=== PATIENT | female | born 2005 | race African-American/Black ===

== ENCOUNTER 2024-04-04 09:08 | Emergency (ER) | payer OTHER, SELFPAY ==
--- NOTE | ~2024-04-04 | XR_ITS ---
EXAMINATION: XR hand LT min 3V DATE: 04/04/2024 10:08 INDICATION: Posttraumatic pain at the palmar aspect of the ulnar side of the left hand TECHNIQUE: Posteroanterior, oblique and lateral views of the left hand were obtained. COMPARISON: None. FINDINGS: Alignment is normal. No fracture. Joint spaces are normal. Soft tissues are unremarkable. IMPRESSION: 1. Negative left hand radiographs. Reviewed, dictated and finalized at location A.
--- NOTE | 2024-04-04 09:35 | ED.UPPEXIN ---
HPI - Extremity Injury (Upper) General Chief Complaint: Extremity Injury, Upper Stated Complaint: Left Hand Injury Time Seen by Provider: 04/04/24 09:35 Source: patient, RN notes reviewed and old records reviewed Mode of arrival: ambulatory Limitations: no limitations History of Present Illness HPI narrative: 18-year-old female to [facility] with complaint left palmar pain since Monday. Patient states that she works at [employer] and noticed a box about to fall over. Patient states that she wrist toward the box to try to catch it before it fell to the ground. 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 Patient reports treating with ice and ibuprofen at home without relief. patient denies prior injury, weakness, numbness, tingling. Patient endorses the pain increases with activity. Patient resting comfortably in exam room in no acute distress. Related Data Home Medications Medication Instructions Recorded Confirmed No Home Medications 04/04/24 04/04/24 Allergies Allergy/AdvReac Type Severity Reaction Status Date / Time No Known Allergies Allergy Verified 04/04/24 09:44 Review of Systems Review of Systems: All systems reviewed & are unremarkable except as noted in HPI and below Constitutional: Constitutional: Reports no additional constitutional complaints Eyes: Eyes: Reports no additional eye complaints ENT: Reports system reviewed and no additional complaints, except as documented Cardiovascular: Cardiovascular: Reports no additional cardiovascular complaints, Denies chest pain and Denies dyspnea Respiratory: Respiratory: Reports no additional respiratory complaints, Denies cough and Denies dyspnea Musculoskeletal: Musculoskeletal: Reports as per HPI and Reports other ( Left palmar hand pain) Neurologic: Reports system reviewed and no additional complaints, except as documented Psychiatric: Psychiatric: Reports no additional psychiatric complaints PMFSH Comments At the time of my signature, I reviewed and agree with the nursing past medical, surgical, social, and family history. There is no relevant family history pertinent to the patient complaint. Exam Const: General: cooperative, healthy appearing, comfortable, no acute distress, alert and well nourished Nutritional Appearance: well nourished Orientation/consciousness: patient oriented x3 Limitations: no limitations HENMT: Head: normal to inspection Ears: external ears normal Face/Nose/Sinus: Normal external nose present, Normal nares present, normal facial exam, No erythema and No edema Face and sinus: normal facial exam, no erythema and no edema Mouth: Yes Normal oral and palatal mucosa present Eyes: General: appearance normal, both eyes and all related structures Neck: Neck: normal visual inspection, full ROM and no meningeal signs Chest: Chest palpation & inspection: normal inspection of the chest Resp: Effort & Inspection: normal respiratory effort and able to speak in complete sentences Cardio: Jugular venous distension: no JVD Rate: regular rate Back/Spine/Pelvis: Cervical Spine: cervical ROM normal Skin: General skin exam: normal color, no rashes or lesions noted and turgor normal Neuro: General: patient oriented x3, gait normal, moves all extremities and no meningeal signs Speech: normal speech Gait exam (Neuro): Normal gait present Extrem: General: normal to inspection, full ROM and capillary refill normal Left upper extremity: hand normal capillary refill and tenderness of the palm Psych: Appearance: grossly normal and well kempt Course Course Emergency Course: Some parts of this dictation were generated by voice recognition software and may contain typographical and/or grammatical inaccuracies. Level of Care: Express Care Visit Vital Signs Vital signs: Vital Signs Temperature 36.6 C 04/04/24 09:46 Pulse Rate 87 04/04/24 09:46 Respiratory Rate 20 04/04/24 09:46 Blood Pressure 113/72 04/04/24 09:46 Pulse Oximetry 100 04/04/24 09:46 Temperature 36.6 C 04/04/24 09:46 Pulse Rate 87 04/04/24 09:46 Respiratory Rate 20 04/04/24 09:46 Blood Pressure 113/72 04/04/24 09:46 Pulse Oximetry 100 04/04/24 09:46 reviewed MDM - Extremity Injury (Upper) MDM Narrative Medical decision making narrative: 18-year-old female to [facility] with complaint left palmar pain since Monday. Patient states that she works at [employer] and noticed a box about to fall over. Patient states that she wrist toward the box to try to catch it before it fell to the ground. 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 Patient reports treating with ice and ibuprofen at home without relief. patient denies prior injury, weakness, numbness, tingling. Patient endorses the pain increases with activity. Patient resting comfortably in exam room in no acute distress. On exam, tenderness with palpation across palmar surface left hand. Exam otherwise unremarkable. Radiology negative in clinic. Patient is sitting comfortably in exam room nontoxic in appearance. Patient appropriate for outpatient treatment and follow-up. Discharge instructions reviewed with patient, as well as provided in writing per nursing staff. The instructions also include specific and strict return/GO TO THE ER as well as f/u information. All questions have been answered, and the patient deny any further questions with discharge and discharge plan. Some parts of this dictation were generated by voice recognition software and may contain typographical and/or grammatical inaccuracies. Differential Diagnosis Differential diagnosis: Likely sprain and strain of wrist, fracture of wrist, finger sprain, dislocation of finger, Colles' fracture, fracture of hand, dislocation of shoulder, fracture of humerus and fracture of clavicle Discharge Plan Discharge Clinical Impression: Contusion of left hand Patient Disposition: Home, Self-Care Condition: Stable Instructions: Contusion in Adults (ED) Additional Instructions: please review attached instructions regarding contusion and implement suggestions as tolerated, as needed alternate Tylenol and ibuprofen as needed for pain or swelling please follow-up with your primary care provider if needed for new or worsening symptoms please go directly to the emergency department Prescriptions: No Action No Home Medications Follow-up/Referrals: PHYSICIAN,[facility] [Primary Care Provider] - Stand Alone Forms: Work/School Release IP
[2024-04-04 09:46] VITALS: BP 113/72; PULSE 87; RESP 20; TEMP 36.6; O2SAT 100
== END 2024-04-04 10:36 | disposition home or self-care (01) ==
PROVIDERS: Emergency Provider Nurse Practitioner Family
DX: S60.222A Contusion of left hand, initial encounter (principal); W20.8XXA Other cause of strike by thrown, projected or falling object, initial encounter; Y99.0 Civilian activity done for income or pay
CPT/HCPCS: 73130; 99203; G0463